=== PATIENT | female | born 1985 | race Caucasian/White ===

== ENCOUNTER 2018-09-29 11:57 | Emergency (ER) | payer BC, OTHER ==
[~2018-09-29] VITALS: Ht 162.6 cm; Wt 56.7 kg
--- NOTE | 2018-09-29 12:01 | NUR ---
PATIENT BROUGHT FOR ALLERGIC REACTION BY RESCUE PATIENT IS TACHYCARDIAC ON THE MONITOR REPORTS NO MORE RESPIRATORY DISTRESS. PATIENT IS SATURATING 99% ON ROOM AIR.
[2018-09-29] MEDS ORDERED: FAMOTIDINE. 20 MG/2 ML VIAL IV ONE ×2 (12:30)
[2018-09-29] MEDS ORDERED: IBUPROFEN 800 MG TABLET PO ONE (12:30)
[2018-09-29] MEDS ORDERED: methylPREDNISolone SOD SUCC 125 MG/2 ML VIAL IV ONE (12:30)
[2018-09-29] MEDS ORDERED: methylPREDNISolone SOD SUCC 125 MG/2 ML VIAL ONE (12:31)
[2018-09-29] MEDS ORDERED: IBUPROFEN 800 MG TABLET ONE (12:52)
--- NOTE | 2018-09-29 13:37 | NUR ---
PATIENT HAS BEEN GIVEN PRESCRIPTIONS AND DISCHARGE INFORMATION SIGNED. IV REMOVED.
== END 2018-09-29 13:40 | disposition home or self-care (01) ==
LOC: ER 11:58
DX: T78.00XA Anaphylactic reaction due to unspecified food, initial encounter (principal); Z91.018 Allergy to other foods
CPT/HCPCS: 96374; 96375; 99283; J2930; J3490; A4663